=== PATIENT | female | born 2000 | race Caucasian/White ===

== ENCOUNTER → 2022-08-12 12:19 | Outpatient (CLI) | payer OTHER, SELFPAY | PROVIDERS: PCP Pediatrics; Visit Provider Obstetrics & Gynecology | DX: N92.6 Irregular menstruation, unspecified (principal); Z32.00 Encounter for pregnancy test, result unknown | CPT/HCPCS: 36415; 84702 ==

== ENCOUNTER → 2022-08-20 16:59 | Outpatient (CLI) | payer OTHER, SELFPAY | PROVIDERS: Visit Provider Obstetrics & Gynecology | DX: Z34.91 Encounter for supervision of normal pregnancy, unspecified, first trimester (principal); Z3A.10 10 weeks gestation of pregnancy | CPT/HCPCS: 87086; 87088; 87186 ==

== ENCOUNTER → 2022-09-10 14:34 | Outpatient (CLI) | payer OTHER, SELFPAY ==
[2022-09-10 15:56] LABS: Basophils % 0.4 % (0.1-2.0); Eosinophils # 0.4 K/mm3 (0.0-0.4); Eosinophils % 4.7 % (0.1-12.0); Hematocrit 38.6 % (37.0-47.0); Hemoglobin 13.3 g/dL (12.2-16.2); Lymphocytes # 2.1 K/mm3 (0.7-4.5); Lymphocytes % 27.4 % (10-50); Mean Corpuscular HGB Conc 34.4 g/dL (31.8-35.4); Mean Corpuscular Hemoglobin 30.9 pg (27.0-31.2); Mean Platelet Volume 8.4 fl (7.4-10.4); Monocytes # 0.4 K/mm3 (0.1-1.0); Monocytes % 5.1 % (1.7-9.3); Neutrophils # 4.7 K/mm3 (1.8-7.8); Neutrophils % 62.3 % (37.0-80.0); Platelet Count 275 K/mm3 (142-424); Red Blood Count 4.29 M/mm3 (4.20-5.40); Red Cell Distribution Width 13.5 % (11.5-17.5); White Blood Count 7.6 K/mm3 (4.8-10.8)
[2022-09-12 09:09] LABS: Rapid Plasma Reagin Ab Titer Non Reactive (NonRea<1:1)
[2022-09-12 10:08] LABS: Rubella Antibodies, IgG 0.92 index (Immune >0.99)
[2022-09-17 10:24] LABS: HIV Screen 4th Generation wRfx Non Reactive
[2022-09-17 10:25] LABS: Hepatitis B Surface Antigen Negative; Hepatitis C Antibody Non Reactive
== END ==
PROVIDERS: PCP Pediatrics; Visit Provider Obstetrics & Gynecology
DX: Z34.91 Encounter for supervision of normal pregnancy, unspecified, first trimester (principal); Z3A.14 14 weeks gestation of pregnancy
CPT/HCPCS: 36415; 85025; 86593; 86703; 86762; 86850; 87340; 87380; G0432

== ENCOUNTER → 2022-10-27 13:14 | Outpatient (CLI) | payer OTHER, SELFPAY ==
--- NOTE | 2022-10-27 13:14 | US_ITS ---
PROCEDURE: US OB /MATERNAL DETAIL CLINICAL INDICATION: 20 week anatomy scan COMPARISON: No exams were available for comparison FINDINGS: Transabdominal sonographic images of the uterus were obtained. From her established due date she is 19 weeks 6 days. Single viable intrauterine gestation. Cephalic position. Placenta: Posteriorplacenta grade 1. There is average amount fluid. The cervix appears satisfactory. Closed and measuring 2.6 cm in length. Complete survey performed and was unremarkable on the submitted images as in PACS. No discrete anomalies identified on survey imaging by technologist. Active fetus. Three-vessel cord with satisfactory umbilical cord insertion. 4- chamber heart noted. Situs, LVOT, RVOT, aortic arch appear normal Survey of brain & ventricles Unremarkable. Cerebellum, cisterna magna, thalamus and choroid plexus appear normal. Face and neck survey unremarkable. Nose, lips, profile, nasion appear normal. Diaphragm and chest views unremarkable. Abdomen: Both kidneys noted and unremarkable. Stomach and bladder noted and satisfactory. Spine: Survey of the spine satisfactory with no anomalies identified nor imaged. Upper, thoracic and lower spine appear normal. Both arms and legs noted. Amniotic Fluid: Adequate. Measurements: Average ultrasound age 20weeks 2days. Gestational Age 20weeks 2days Estimated due date by ultrasound age 0103/14/2023. Estimated weight 322g BPD = 20weeks 6days OFD = 20weeks 4days HC = 20weeks AC = 19weeks 3days FL = 20weeks 4days Growth Percentile= 50 Heart Rate = 132bpm Cerebellum = 19weeks 4days Humerus = 20weeks 1day HC/AC is 1.25 CI is 0.8 FL/BPD is 0.69 FL/AC is 0.24 IMPRESSION: 1. Viable fetus in the cephalic presentation with a posterior placenta grade 1. 2. The fluid is within normal limits. 3. Cervix appears slightly short at 2.6 cm. 4. Anatomical scan appears normal. 5. Size and dates are congruent. Dictated by: Saturnino Winter MD 10/27/2022 17:21 Saturnino Winter MD in [place] 10/27/2022 17:21
== END ==
LOC: RAD 13:14
PROVIDERS: PCP Pediatrics; Visit Provider Obstetrics & Gynecology
DX: Z34.92 Encounter for supervision of normal pregnancy, unspecified, second trimester (principal); Z3A.20 20 weeks gestation of pregnancy
CPT/HCPCS: 76811

== ENCOUNTER → 2022-12-10 10:49 | Outpatient (CLI) | payer OTHER, SELFPAY ==
[2022-12-10 11:34] LABS: Basophils % 0.2 % (0.1-2.0); Eosinophils # 0.1 K/mm3 (0.0-0.4); Eosinophils % 1.4 % (0.1-12.0); Hematocrit 34.6 % (37.0-47.0); Hemoglobin 12.3 g/dL (12.2-16.2); Lymphocytes % 20.7 % (10-50); Mean Corpuscular HGB Conc 35.6 g/dL (31.8-35.4); Mean Corpuscular Hemoglobin 33.8 pg (27.0-31.2); Mean Corpuscular Volume 94.9 fl (81-99); Mean Platelet Volume 8.6 fl (7.4-10.4); Monocytes # 0.4 K/mm3 (0.1-1.0); Monocytes % 4.4 % (1.7-9.3); Neutrophils % 73.2 % (37.0-80.0); Platelet Count 219 K/mm3 (142-424); Red Blood Count 3.64 M/mm3 (4.20-5.40); Red Cell Distribution Width 14.1 % (11.5-17.5); White Blood Count 9.5 K/mm3 (4.8-10.8)
[2022-12-10 11:54] LABS: Glucose,Fasting 87 mg/dl (74-100)
[2022-12-10 13:25] LABS: Glucose 1 Hour 126 mg/dL (74-100)
== END ==
PROVIDERS: PCP Pediatrics; Visit Provider Obstetrics & Gynecology
DX: Z34.92 Encounter for supervision of normal pregnancy, unspecified, second trimester (principal); Z3A.26 26 weeks gestation of pregnancy
CPT/HCPCS: 36415; 82951; 85025

== ENCOUNTER → 2023-01-21 14:13 | Outpatient (CLI) | payer OTHER, SELFPAY | PROVIDERS: PCP Pediatrics; Visit Provider Obstetrics & Gynecology | DX: Z34.93 Encounter for supervision of normal pregnancy, unspecified, third trimester (principal); Z3A.32 32 weeks gestation of pregnancy | CPT/HCPCS: 87086 ==

== ENCOUNTER → 2023-02-18 18:32 | Outpatient (CLI) | payer OTHER, SELFPAY | LOC: LAB.DROPOF 18:33 | PROVIDERS: PCP Pediatrics; Visit Provider Obstetrics & Gynecology | DX: Z34.93 Encounter for supervision of normal pregnancy, unspecified, third trimester (principal); Z3A.36 36 weeks gestation of pregnancy | CPT/HCPCS: 86403 ==

== ENCOUNTER 2023-03-18 05:03 | Inpatient (IN) | payer OTHER, SELFPAY ==
[2023-03-18 05:07] VITALS: BMI 30.8
[2023-03-18 05:39] LABS: Microscopic, Urine URINE MICROSCOPIC (MICROSCOPIC)
[2023-03-18 05:41] LABS: Appearance,Urine CLEAR (Clear); Bilirubin,Urine Negative (Negative); Blood, Urine Negative (Negative); Color,Urine YELLOW (Yellow); Glucose,Urine (UA) Negative (Negative); Ketones,Urine Negative (Negative); Leukocyte Esterase,Urine 1+ (Negative); Nitrate,Urine Negative (Negative); PH,Urine 7.5 (5.0-8.5); Protein,Urine Negative (Negative); Urobilinogen,Urine 0.2 EU/dl (0.2)
[2023-03-18] MEDS: DEXTROSE 5%-LACTATED RINGERS 1,000 ML 125 ML IV ×3 (05:44→21:39)
[2023-03-18] MEDS: LACTATED RINGERS 1000ML 1,000 ML 250 ML IV (05:44)
[2023-03-18] MEDS: OXYTOCIN/RINGERS LACTATE 30 UNITS/500 ML BAG IV ×2 (05:45→21:15)
[2023-03-18 05:48] LABS: Basophils # 0.1 K/mm3 (0-0.2); Basophils % 0.5 % (0.1-2.0); Eosinophils # 0.3 K/mm3 (0.0-0.4); Eosinophils % 2.4 % (0.1-12.0); Hematocrit 37.1 % (37.0-47.0); Hemoglobin 12.5 g/dL (12.2-16.2); Lymphocytes # 2.2 K/mm3 (0.7-4.5); Lymphocytes % 21.9 % (10-50); Mean Corpuscular HGB Conc 33.8 g/dL (31.8-35.4); Mean Corpuscular Hemoglobin 32.4 pg (27.0-31.2); Mean Corpuscular Volume 95.9 fl (81-99); Mean Platelet Volume 9.1 fl (7.4-10.4); Monocytes # 0.5 K/mm3 (0.1-1.0); Monocytes % 4.8 % (1.7-9.3); Neutrophils # 7.2 K/mm3 (1.8-7.8); Neutrophils % 70.4 % (37.0-80.0); Platelet Count 224 K/mm3 (142-424); Red Blood Count 3.87 M/mm3 (4.20-5.40); Red Cell Distribution Width 14.3 % (11.5-17.5); White Blood Count 10.2 K/mm3 (4.8-10.8)
[2023-03-18 05:52] LABS: Amphetamine/Metha Screen,Urine Negative ng/ml (<1000); Barbiturates Screen,Urine Negative ng/ml (<200)
[2023-03-18 05:53] LABS: Benzodiazepines Screen,Urine Negative ng/ml (<200)
[2023-03-18 05:54] LABS: Bacteria,Urine 1+ /lpf; Cannabinoid Screen,Urine Negative ng/ml (<50); Cocaine Screen,Urine Negative ng/ml (<300); Squamous Epithelial Cell,Urine Occasional #/hpf (0-5)
[2023-03-18 05:55] LABS: Methadone Screen,Urine Negative ng/ml (<300); Opiate Screen,Urine Negative ng/ml (<300)
[2023-03-18 05:56] LABS: Phencyclidine Screen,Urine Negative ng/ml (<25)
[2023-03-18 05:58] VITALS: BP 130/66; PULSE 104; RESP 17; TEMP 36.8; O2SAT 99; BMI 30.9
[2023-03-18] MEDS: ALUMINUM/MAGNESIUM/SIMETHICONE 30ML UDC 30 ML PO ×2 (06:45→16:16)
--- NOTE | 2023-03-18 09:18 | EXP.OB.APHP ---
OB - H&P: HPI Antepartum History of Present Illness Chief complaint: Elective induction of labor History of present illness: Ms Bubba Knowles is a 23 yo at 40w1d who presents to [facility] L&D for scheduled elective induction of labor. She has had good care. History of Present Criteria for establishing EDC:: LMP confirmed by 1st trimester US care: good care Ultrasounds: normal mid trimester US Obstetrical complications: none Medical complications: none Labs Blood type: A (+) positive Rubella: nonimmune RPR/VDRL: nonreactive GBS status: negative HBsAG: negative [facility] Disclaimer: The information contained in this section may have been updated after the patient was seen, as this information can be updated by other users. Medical History (Updated 03/18/23 @ 12:52 by Caitlyn Bose DO) Dysmenorrhea Encounter for elective induction of labor Heartburn during Postmaturity , 40-42 weeks gestation Rubella non-immune status, antepartum Screening for genetic disease carrier status UTI (urinary tract infection) Vaginitis Surgical History History of placement of ear tubes Family History Grandmother Cancer Breast Social History (Updated 03/18/23 @ 05:56 by Chichi Eaton RN) Smoking Status: Never smoker alcohol intake: never substance use type: denies use current occupational status: unemployed Travel in the last 8 weeks: None do you feel safe at home: Yes victim of physical abuse: No victim of emotional abuse: No victim of sexual abuse: No Review of Systems Review of Systems Review of systems:: pertinent systems reviewed and negative unless documented below *Musculoskeletal Comments: + lower extremity swelling Meds Home Medications and Allergies Home Medications Medication Instructions Recorded Confirmed Type vitamin no.167-folic acid 1 tab PO DAILY Supplement 03/18/23 03/18/23 History 400 mcg-dha 25 mg chewable tablet (One-A-Day ) New Prescriptions to Start Prescriptions: Allergies Allergy/AdvReac Type Severity Reaction Status Date / Time No Known Allergies Allergy Verified 03/14/23 10:49 OB - H&P: Exam Physical Exam Vital signs: Temp Pulse Resp BP Pulse Ox O2 Del Method 98.2 F 104 H 17 130/66 99 Room Air 03/18/23 05:58 03/18/23 05:58 03/18/23 05:58 03/18/23 05:58 03/18/23 05:58 03/18/23 05:58 Constitutional no acute distress and cooperative Routine HEENT Exam Head: Present normocephalic and atraumatic Eye: Absent conjunctivae pink ENT: Present mucous membranes moist and dentition normal Routine Neck Exam Present full ROM Routine Respiratory Exam Present CTA bilaterally and normal respiratory effort Routine Cardiovascular Exam Present RRR Routine Abdominal Exam Present soft (Gravid); Absent tenderness Routine Rectal Exam Patient deferred: visual exam Routine Exam External: Present normal urethra appearance; Absent erythema, tenderness, lesions or lacerations Routine Extremities Exam Present edema (+2 bilateral lower extremity edema) and full ROM; Absent calf tenderness Routine Neurological Exam Present alert, moving all extremities and normal speech Routine Psychiatric Exam Present normal affect and cooperative Detailed Labor and Delivery Exam Dilation (cm): 4 Effacement (%): 75 Cervix position: mid station: -2 Consistency: soft Membranes: artificially ruptured Amniotic fluid: clear Baseline heart rate: 145 monitor accelerations: Present monitor decelerations: None rat exterminator variability: Moderate (11-25) Contraction frequency (min): 3 OB - Results Labs Labs: Short CBC 03/18/23 Range/Units 05:30 WBC 10.2 (4.8-10.8) K/mm3 Hgb 12.5 (12.2-16.2) g/dL Hct 37.1 (37.0-47.0) % Plt Count 224 (142-424) K/mm3 Urine 03/18/23 Range/Units 05:30 Urine Color Yellow (Yellow) Urine Appearance Clear (Clear) Urine pH 7.5 (5.0-8.5) Ur Specific Nichols 1.010 (1.005-1.030) Urine Protein Negative (Negative) Urine Glucose (UA) Negative (Negative) OB - A/P Antepartum (1) Postmaturity , 40-42 weeks gestation: Status: Acute (2) Encounter for elective induction of labor: Status: Acute (3) Heartburn during : Status: Acute (4) Rubella non-immune status, antepartum: Status: Acute Additional Plan Planning to breastfeed?: Yes Additional Information:: Admit to L&D for elective induction of labor with Pitocin and amniotomy GBS negative Close monitoring Anticipate
[2023-03-18] MEDS: ONDANSETRON 4MG/2ML VIAL 4 MG IV ×2 (13:44→18:30)
--- NOTE | 2023-03-18 16:27 | P.PNANES_ITS ---
[facility] Disclaimer: The information contained in this section may have been updated after the patient was seen, as this information can be updated by other users. Medical History (Updated 03/18/23 @ 12:52 by Caitlyn Bose DO) Dysmenorrhea Encounter for elective induction of labor Heartburn during Postmaturity , 40-42 weeks gestation Rubella non-immune status, antepartum Screening for genetic disease carrier status UTI (urinary tract infection) Vaginitis Surgical History History of placement of ear tubes Family History Grandmother Cancer Breast Social History (Updated 03/18/23 @ 05:56 by Chichi Eaton RN) Smoking Status: Never smoker alcohol intake: never substance use type: denies use current occupational status: unemployed Travel in the last 8 weeks: None do you feel safe at home: Yes victim of physical abuse: No victim of emotional abuse: No victim of sexual abuse: No [facility] Anesthesia Checklist Patient Identification Patient Identification: Arm Band and Family Structural Data Admitted From: Home Planned Operative Procedure/s: Epidural for labor Consent for Planned Operative Procedure(s) Verified: Yes Verified Documents: Surgical Consent and History and Physical NPO Status Verified Time NPO: 00:00 Additional verifications Patient : Yes Anesthesia Reactions: No Hx Blood Transfusions: No Cephalosporin Allergy: No Previous Colonoscopy: No Airway Assessment Mallampati Score:: Class I C-Spine Mobility Assessed: Yes TMJ Mobility Assessed: Yes Dentition: Good Dentition Neurological Assessment Level of Consciousness: Awake, Alert, Appropriate and Follows Commands Hx Seizures: No Numbness or tingling in extremities: No Anesthesia Plan Anesthesia Risk discussed: Yes ASA Class: I Anesthesia Type: Epidural Preoperative Comments Pre-Operative Comments: Labor Epidural. No medical problems.
--- NOTE | 2023-03-18 23:19 | EXP.LABOR.NO ---
Labor Note Subjective: Date: 03/18/23 Time: 23:19 regular contraction Objective: NST:: Reactive Contractions:: every 2-3 minutes Cervical Dilation:: 6 Effacement:: 90% Station: -1 Membranes: artificially ruptured Fetus: Monitoring?: Yes monitoring type:: Internal and External Assessment: Labor progressing?: No Cephalopelvic disproportion?: Yes Problems: (1) Postmaturity , 40-42 weeks gestation: Category: Medical Code(s): O48.0 - Post-term (2) Encounter for elective induction of labor: Category: Medical Code(s): Z34.90 - Encounter for supervision of normal , unspecified, unspecified trimester (3) Failure to progress in labor: Category: Medical Code(s): O62.2 - Other uterine inertia (4) Cephalopelvic disproportion: Qualifiers: Cephalopelvic disproportion type: due to unspecified factor Qualified Code(s): O33.9 - Maternal care for disproportion, unspecified Category: Medical Code(s): O33.9 - Maternal care for disproportion, unspecified Plan: Plan for ?: Yes Additional information:: Cervical exam unchanged over > 4 hours. NST reactive, category 1. Pitocin reached 20 units with [address]PC in place. Decision was made to proceed with primary secondary to failure to progress and cephalopelvic disproportion. Discussed risks, benefits, alternatives, expectations and possible complications of surgery. All questions addressed and answered. Bubba voiced understanding of risks and possible complications of surgery. Consent form signed. Proceed with primary .
--- NOTE | 2023-03-18 23:34 | PC.NURSE ---
Dr. Hammer paged @ [phone]. STEPHANIE Stacy returned call at [phone]. Per Chichi, anesthesia in house and aware, and Jennifer alvarez.
--- NOTE | 2023-03-18 23:39 | PC.NURSE ---
Dr. Hammer returned call.
[2023-03-19] MEDS: CEFAZOLIN SODIUM 2 GM in 0.9 % SODIUM CHLORIDE 100 ML IV ×3 (00:20→16:22)
[2023-03-19 00:40] LABS: Cord Blood PH 7.48 (7.35-7.45)
--- NOTE | 2023-03-19 01:14 | EXP.OP.NOTE ---
Date of procedure: 03/19/23 Pre-op Diagnosis:: 1. IUP at 40w1d 2. Failure to progress 3. Cephalopelvic disproportion Post-op Diagnosis:: 1. IUP at 40w1d 2. Failure to progress 3. Cephalopelvic disproportion Procedure performed:: Primary Low Transverse Section Surgeon:: Caitlyn Bose DO Mechanical Assembly Technician(s):: Jonathan Otero MD BUSINESS LAW INSTRUCTOR:: Other (Blake Jackson) Anesthesia: spinal Estimated blood loss (mL): 500 Clinical Note:: Ms Bubba Knowles is a 23 yo at 40w1d admitted to [facility] L&D for scheduled elective induction of labor. She has had good care. GBS negative. She underwent induction with Pitocin and amniotomy. She progressed to . Pitocin reached 20 units. IUPC was in place. She had no cervical change in over 4 hours. Decision was made to proceed with primary secondary to failure to progress and cephalopelvic disproportion. Operative findings:: 1. Live female baby, Madison, weighing 9 lb 3 oz, APGARs 9 (1 min), 9 (5 min) 2. Grossly normal appearing uterus, bilateral fallopian tubes and ovaries Operative note:: The risks, benefits and alternatives of the procedure were reviewed with the patient. Informed consent was obtained. Epidural was in place but she did not have adequate pain control. Patient was taken to the operating room where epidural was removed and spinal was placed. The patient received 2 grams of Ancef preoperatively. Patient was placed in dorsal supine position with a leftward tilt. SCDs in place. Roa catheter had been placed and was draining clear urine prior to the start of the procedure. heart tones were obtained. Vagina was prepped with Betadine swabs x 3. Patient was then prepped and draped in normal sterile fashion. Allis clamp test was performed to ensure adequate anesthesia. A Pfannenstiel skin incision was made 2 cm above pubic symphysis. This was carried through to underlying layer of fascia. Fascia was incised in midline, extended laterally with Macias scissors. Superior aspect of fascial incision was grasped with two Shayne clamps, elevated up, and rectus muscle dissected off bluntly and sharply with Macias scissors. Inferior aspect of fascial incision was grasped with two Shayne clamps, elevated up, and rectus muscle dissected off bluntly and sharply with Macias scissors. The retcus muscle was then in the midline and the peritoneum was entered bluntly with a digit. Peritoneal incision was then extended superiorly and inferiorly with good visualization of the bladder. Rui retractor was inserted. The lower uterine segment was incised in a transverse fashion. Head was delivered without difficulty. Remainder of body was delivered without difficulty. Mouth and nares were bulb suctioned. Spontaneous cry was noted. Delayed cord clamping was performed for 60 seconds. The umbilical cord was clamped and cut. The infant was handed to awaiting pediatric staff in stable condition. Dr. Hammer was present. Apgars were 9(1 min), 9(5 min). Cord blood was obtained. Gentle traction on the umbilical cord and uterine fundal massage delivered the placenta. Placenta was intact. Uterus was cleared of all clots and debris with a moist laparotomy sponge. Corners of the uterine incision were grasped with Allis clamps. The uterine incision was reapproximated with # 1 Vicryl suture in a running, locked stitch. Second layer of the same stitch was used to imbricate the incision. Vesicouterine peritoneum was reapproximated in a running locked stitch with 0-Vicryl suture. Hemostasis was noted. Posterior cul-de-sac was cleaned with moist laparotomy sponge. Gutters cleared of all clots and debris with a moist laparotomy sponge. Reinspection of the lower uterine segment demonstrated small amount of oozing. Bradley was applied over uterine incision. Hemostasis was noted. At this point all instruments and sponges were removed from the pelvis.? The peritoneum was grasped with Mari clamps x 3. The peritoneum was reapproximated with 0 Vicryl suture in a running stitch. The corners of the fascia were grasped with Shayne clamps, and the fascia was reapproximated with two # 1 Vicryl suture overlapped to the right of midline. Subcutaneous tissue was irrigated with clear return of fluids. The subcutaneous tissue was reapproximated with 3-0 Vicryl. The skin was reapproximated with Insorb laura. Telfa was placed over closed Pfannenstiel skin incision. At the end of the procedure, the uterus was firm with minimal vaginal bleeding. Patient tolerated the procedure well. Instrument, sponges and needle counts were correct x 2. Mom and baby were transported to recovery room in stable condition. Condition: stable Disposition: floor Specimens:: 1. Cord blood Complications:: None
[2023-03-19 01:35] VITALS: BP 142/74; PULSE 115; RESP 19; TEMP 37.1; O2SAT 99
[2023-03-19 01:45] VITALS: BP 148/86; PULSE 86; RESP 19; O2SAT 97
[2023-03-19 01:55] VITALS: BP 144/78; PULSE 86; RESP 19; O2SAT 98
[2023-03-19 02:05] VITALS: BP 157/80; PULSE 87; RESP 19; O2SAT 97
--- NOTE | 2023-03-19 02:05 | P.PNANES_ITS ---
[facility] Anesthesia Record Part I Anesthesia Record I Intake, IV Amount: 2,600 Hydration: Adequate Estimated blood loss (mL): 400 Urine output (mL): 200 Blood Products used (#): none Blood Pressure: 142/74 SaO2: 99 Pulse Rate: 97 Airway Patency: Patent Respiratory Rate: 24 Temperature: 98.7 F Patient is:: Awake and Stable Stable to PACU at:: 01:35 Comments:: Failure to progress. Six centimeter cervical opening for over four hours. Baby 9.3 pounds.
[2023-03-19 02:10] VITALS: BP 142/74; PULSE 97; RESP 24; TEMP 37.1; O2SAT 99
[2023-03-19] MEDS: OXYTOCIN/RINGERS LACTATE 30 UNITS/500 ML BAG 40 UNITS IV ×2 (02:15→02:30)
--- NOTE | 2023-03-19 02:21 | SUR.OPER ---
Patient did well during the c section. The Qbl was 536. Dr brennan is aware. Time of was 1233 on 03/19/2023. Dr rodriguez assisted. Methylergonovine 0.2mg was given by uri per dr brennan. Pt is dressed with steri strips, telfa and tape. Cord ph was 7.41. Tap block was done by uri at 110-120am. In pacu patient was doing well also. No pain reported. Fundus was 2 fingers below umbilicus and blood was scant and free flow. Chichi was given report at 205am.
[2023-03-19] MEDS: ACETAMINOPHEN 500MG TAB 1000 MG PO ×4 (02:29→20:06)
[2023-03-19] MEDS: KETOROLAC 30MG/ML VIAL 30 MG IV ×3 (02:29→14:07)
[2023-03-19] MEDS: LACTATED RINGERS 1000ML 1,000 ML 125 ML IV (04:50)
[2023-03-19] MEDS: PRENATAL MULTIVITAMIN W/IRON 1 EACH PO (16:21)
[2023-03-20] MEDS: IBUPROFEN 400 MG TABLET 800 MG PO ×3 (00:30→17:21)
[2023-03-20] MEDS: ACETAMINOPHEN 500MG TAB 1000 MG PO ×3 (00:30→17:21)
[2023-03-20 04:55] VITALS: BP 89/51; PULSE 77; RESP 15; TEMP 36.7; O2SAT 100
[2023-03-20 07:49] LABS: Basophils % 0.3 % (0.1-2.0); Eosinophils # 0.1 K/mm3 (0.0-0.4); Eosinophils % 0.7 % (0.1-12.0); Hematocrit 34.7 % (37.0-47.0); Hemoglobin 11.5 g/dL (12.2-16.2); Lymphocytes % 16.8 % (10-50); Mean Corpuscular HGB Conc 33.2 g/dL (31.8-35.4); Mean Corpuscular Hemoglobin 32.3 pg (27.0-31.2); Mean Corpuscular Volume 97.3 fl (81-99); Mean Platelet Volume 9.1 fl (7.4-10.4); Monocytes # 0.6 K/mm3 (0.1-1.0); Monocytes % 5.4 % (1.7-9.3); Neutrophils % 76.9 % (37.0-80.0); Platelet Count 203 K/mm3 (142-424); Red Blood Count 3.57 M/mm3 (4.20-5.40); Red Cell Distribution Width 14.2 % (11.5-17.5); White Blood Count 11.7 K/mm3 (4.8-10.8)
--- NOTE | 2023-03-20 11:04 | P.PN_ITS ---
Subjective *Date: 03/20/23 *Time: 11:04 Interval history: POD # 1 s/p . Bubba is feeling well. Pain controlled. Formula feeding. Light lochia. Voiding without difficulty and passing flatus. Tolerating regular diet. No headaches, vision changes or RUQ pain. Denies fever/chills, chest pain and shortness of breath. Admits to lower extremity swelling. No calf pain. Ambulating well ad arnel. Medical Exam Vital signs and Labs for Last 24 Hours: Vital Signs Temp Pulse Resp BP Pulse Ox O2 Del Method 03/20/23 04:55 98.1 F 77 15 89/51 L 100 Room Air Laboratory Results - last 24 hr 03/20/23 07:15: WBC 11.7 H, RBC 3.57 L, Hgb 11.5 L, Hct 34.7 L, MCV 97.3, MCH 32.3 H, MCHC 33.2, RDW 14.2, Plt Count 203, MPV 9.1, Neut % (Auto) 76.9, Lymph % (Auto) 16.8, [place] % (Auto) 5.4, Eos % (Auto) 0.7, Baso % (Auto) 0.3, Neut # (Aut o) 9.0 H, Lymph # (Auto) 2.0, [place] # (Auto) 0.6, Eos # (Auto) 0.1, Baso # (Auto) 0.0 I & O for Labs for Last 24 Hours: Intake & Output 03/17/23 03/18/23 03/19/23 03/20/23 23:59 23:59 23:59 23:59 Intake Total 2600 / 2600 Balance 2600 / 2600 Weight 221 lb 0.003 oz Microbiology Reports for the Last 24 Hours: Microbiology 03/18/23 05:30 Urine,Clean Catch Urine Culture - Final Head: Present atraumatic and normocephalic ENT: Present mucous membranes moist Neck: Present normal inspection and full ROM Respiratory: Present CTA bilaterally and normal respiratory effort Cardiac: Present Reg Rate and Rhythm GI: Present soft and normal bowel sounds; Absent distention, tenderness or guarding Comments:: Uterine fundus firm and below umbilicus, pfannenstiel incision clean/dry/intact with steri strips in place Rectal (female): Present deferred (female): Present deferred Extremities: Present full ROM and edema (+2 bilateral lower extremity edema ); Absent calf tenderness Neuro: Present alert, awake and moves all extremities Assessment and Plan *Assessment and plan (1) Postmaturity , 40-42 weeks gestation: Status: Acute Category: Medical Code(s): O48.0 - Post-term (2) Encounter for elective induction of labor: Status: Acute Category: Medical Code(s): Z34.90 - Encounter for supervision of normal , unspecified, unspecified trimester (3) Failure to progress in labor: Status: Acute Category: Medical Code(s): O62.2 - Other uterine inertia (4) Cephalopelvic disproportion: Status: Acute Qualifiers: Cephalopelvic disproportion type: due to unspecified factor Qualified Code(s): O33.9 - Maternal care for disproportion, unspecified Category: Medical Code(s): O33.9 - Maternal care for disproportion, unspecified (5) Rubella non-immune status, antepartum: Status: Acute Category: Medical Code(s): O09.899 - Supervision of other high risk pregnancies, unspecified trimester; Z28.39 - Other underimmunization status (6) Acute blood loss anemia: Status: Acute Category: Medical Code(s): D62 - Acute posthemorrhagic anemia Plan Continue routine care Encouraged increased ambulation Plan d/c home tomorrow, POD # 2
[2023-03-20] MEDS: PRENATAL MULTIVITAMIN W/IRON 1 EACH PO (17:21)
[2023-03-21] MEDS: IBUPROFEN 400 MG TABLET 800 MG PO (03:38)
[2023-03-21] MEDS: ACETAMINOPHEN 500MG TAB 1000 MG PO ×2 (03:38→09:26)
[2023-03-21 08:30] VITALS: BP 120/61; PULSE 70; RESP 16; TEMP 36.7; O2SAT 100
--- NOTE | 2023-03-21 09:22 | EXP.DC.SUM ---
General Admission date:: 03/18/23 Discharge date: 03/21/23 HPI HPI HPI: POD # 2 s/p PLTCS Bubba is feeling well. Pain controlled. Light lochia. Formula feeding. Voiding without difficulty and passing flatus. Tolerating regular diet. Denies fever/chills, chest pain and shortness of breath. No headaches, vision changes, lightheadedness/dizziness. She admits to bilateral lower extremity swelling. No calf pain. Ambulating well ad arnel. Hospital Course Hospital Course Hospital Course: Ms Bubba Knowles is a 23 yo at 40w1d admitted to [facility] L&D for scheduled elective induction of labor. She has had good care. GBS negative. She underwent induction with Pitocin and amniotomy. She progressed to . Pitocin reached 20 units. [address]PC was in place. She had no cervical change in over 4 hours. Decision was made to proceed with primary secondary to failure to progress and cephalopelvic disproportion. She underwent primary on 03/19/23. She delivered a live female baby, Madison, weighing 9 lb 3 oz. APGARs 9 (1 min), 9 (5 min). EBL 500 mL. She did well /postoperatively. Pain controlled. Light lochia. Formula feeding. Voiding without difficulty and passing flatus. Tolerating regular diet. Denies fever/chills, chest pain and shortness of breath. No headaches, vision changes, lightheadedness/dizziness. Vital signs stable, afebrile. Heart regular rate and rhythm. Lungs clear to auscultation. Abdomen soft, nontender. She has +2 bilateral lower extremity edema. No calf pain. Ambulating well ad arnel. She was discharged home on POD # 2 with instructions to follow-up in the office in 2 weeks or sooner if needed. Exam Data for Last 24 hours Vital signs and Labs for Last 24 Hours: Temp Pulse Resp BP Pulse Ox O2 Del Method 98.1 F 70 16 120/61 100 Room Air 03/21/23 08:30 03/21/23 08:30 03/21/23 08:30 03/21/23 08:30 03/21/23 08:30 03/21/23 08:30 I & O for Last 24 hours: Intake & Output 03/18/23 03/19/23 03/20/23 03/21/23 23:59 23:59 23:59 23:59 Intake Total 2600 / 2600 Balance 2600 / 2600 Weight 221 lb 0.003 oz Microbiology Reports for the Last 24 Hours: Microbiology 03/18/23 05:30 Urine,Clean Catch Urine Culture - Final Constitutional Constitutional: no acute distress and cooperative *Routine HEENT Exam Head: Present normocephalic and atraumatic Eye: Absent conjunctivae pink ENT: Present mucous membranes moist *Routine Neck Exam Neck: Present full ROM *Routine Respiratory Exam Respiratory: Present CTA bilaterally and normal respiratory effort *Routine Cardiovascular Exam Cardiovascular: Present RRR *Routine Abdominal Exam Abdominal: Present soft and normoactive bowel sounds; Absent tenderness or distended Comments: Uterine fundus firm and below umbilicus, pfannenstiel incision clean/dry/intact *Routine Rectal Exam Patient deferred: visual exam *Routine Exam Patient deferred: external exam *Routine Extremities Exam Extremities: Present edema (+2 bilateral lower extremity edema) and full ROM; Absent calf tenderness *Routine Neurological Exam Neurological: Present alert, moving all extremities and normal speech Routine Psychiatric Exam Psychiatric: Present normal affect and cooperative DS: Diagnosis Discharge Diagnosis (1) Postmaturity , 40-42 weeks gestation: Status: Acute Code(s): O48.0 - Post-term (2) Encounter for elective induction of labor: Status: Acute Code(s): Z34.90 - Encounter for supervision of normal , unspecified, unspecified trimester (3) Failure to progress in labor: Status: Acute Code(s): O62.2 - Other uterine inertia (4) Cephalopelvic disproportion: Status: Acute Code(s): O33.9 - Maternal care for disproportion, unspecified Qualifiers: Cephalopelvic disproportion type: due to unspecified factor Qualified Code(s): O33.9 - Maternal care for disproportion, unspecified (5) Rubella non-immune status, antepartum: Status: Acute Code(s): O09.899 - Supervision of other high risk pregnancies, unspecified trimester; Z28.39 - Other underimmunization status (6) Acute blood loss anemia: Status: Acute Code(s): D62 - Acute posthemorrhagic anemia Meds Home Medications and Allergies Home Medications Medication Instructions Recorded Confirmed Type vitamin no.167-folic acid 1 tab PO DAILY Supplement 03/18/23 03/18/23 History 400 mcg-dha 25 mg chewable tablet (One-A-Day ) ibuprofen 800 mg tablet 800 mg PO Q8H PRN pain #20 tabs 03/21/23 Rx oxycodone 5 mg tablet 5 mg PO Q4HP PRN Moderate Pain 03/21/23 Rx (4-6) #20 tabs New Prescriptions to Start Prescriptions: Caitlyn Edwards oxycodone Caitlyn Bose Allergies Allergy/AdvReac Type Severity Reaction Status Date / Time No Known Allergies Allergy Verified 03/14/23 10:49 Discharge Plan Disposition Patient Disposition: Home, Self-Care Condition: Good Discharge Order Discharge Orders: Discharge Order (Routine); Ordered 03/21/23 Ordered By: Caitlyn Bose Follow up Plan Follow up with: Caitlyn Bose DO [Staff Physician] - 04/01/23 10:15 am Prescriptions/Medication Reconciliation: New oxycodone 5 mg Tablet 5 mg PO Q4HP PRN (Reason: Moderate Pain (4-6)) Qty: 20 0RF ibuprofen 800 mg tablet 800 mg PO Q8H PRN (Reason: pain) Qty: 20 0RF Continued One-A-Day 400 mcg- 25 mg tablet,chewable 1 tab PO DAILY Problem Reconciliation Problems Reviewed?: Yes Patient Discharge Instructions ACTIVITY: Limited activity DIET: continue same diet and regular diet Additional Instructions: Discharge: 1. Take 800 mg Ibuprofen every 8 hours as needed for pain. You can also take 500-1000 mg of Tylenol in between doses, every 6-8 hours. If pain persists you can take Oxycodone 5 mg, 1 tablet every 4-6 hours or more as needed. 2. Nothing in the vagina for 6 weeks - no intercourse, douching or tampons. No tub baths/hot tubs or swimming pools - Drink plenty of fluids. - No strenuous activity or driving until released by your doctor. - Don't lift anything heavier than your . 3. Reasons to return to L&D or call On-Call doctor - fever (greater than 100.4) - heavy vaginal bleeding (soaking through 1 pad in less than 2 hours) - vaginal discharge (malodorous and/or purulent) - severe headaches not resolved by medication or rest and leg tenderness/edema 4. depression/blues - Normal to feel anxious/overwhelmed for first 2 weeks - Talk to your doctor if: severe anxiety, trouble bonding with baby, withdrawing from other family members, thoughts of harming yourself or others Caitlyn Bose DO [facility] [place] [phone] Patient Instructions: Depression, Hemorrhage, DI for , DI for Pre-eclampsia, Catheter-associated Urinary Tract Infection, [facility] Post Discharge Instructions Providers Primary Care Provider: Thuan Degroot Admit Provider: Caitlyn Bose Attending Provider: Caitlyn Bose
[2023-03-21] MEDS: MEASLES,MUMPS,RUBELLA VACCINE VIAL 0.5 ML SQ (09:41)
== END 2023-03-21 11:55 | disposition home or self-care (01) | DRG 788 ==
PROVIDERS: Admitting Provider Obstetrics & Gynecology; PCP Pediatrics; Visit Provider Obstetrics & Gynecology
PROC: 10D00Z1 Extraction of Products of Conception, Low, Open Approach (ICD-10-PCS; CPT 59514; principal; 2023-03-19 12:00)
DX: O62.0 Primary inadequate contractions (principal); Z3A.40 40 weeks gestation of pregnancy; Z37.0 Single live birth; O48.0 Post-term pregnancy; O33.9 Maternal care for disproportion, unspecified; Z23 Encounter for immunization
CPT/HCPCS: 59514; 36415; 59025; 80307; 81001; 82800; 85014; 85018; 85025; 86850; 87086; 90707; 94761; C1758; C9290; G0283; J2405